=== PATIENT | male | born 1950 | race Caucasian/White ===

== ENCOUNTER 2016-12-30 09:52 | Observation (INO) | payer OTHER, BC ==
[~2016-12-30] VITALS: Ht 185.4 cm; Wt 88.6 kg
[~2016-12-30 09:52] MED LIST: ATOR-24 PO; BND25 PO; CLOP1TAB15 PO; CLX20 PO; EPP3/2 IM; FLR1 PO; HYD10 PO; METO25TA3 PO; MULTTAB58 PO
[2016-12-30] MEDS ORDERED: ASPIRIN 324 MG CHEW PO STA (10:20)
--- NOTE | 2016-12-30 10:31 | EMERGENCY ROOM VISIT NOTE ---
History Report prepared by Corin: Roz Sorto Under the Supervision of: Dr. Cj Swift M.D. First contact with patient: 10:13 Chief Complaint: CHEST PAIN Stated Complaint: CHEST PAIN History of Present Illness The patient is a 66 year old male who presents to the Emergency Room with complaints of intermittent dull chest pain beginning 2 hours ago. The patient states that he has had 4 episodes of chest pain this morning that started when he was sitting at his desk and radiate across his chest and into his back. He notes that he has a history of a heart stent and was concerned that he may be having issues with his heart. When he had the stent placed he notes that the chest pain was different and was more in the center of his chest and was exertional. He reports that he took TUMS today without relief of his symptoms. He notes that nothing worsens or relieves his symptoms today. The patient notes that he had some abdominal discomfort under the rib cage a few days ago that has resolved. He denies any arm pain, nausea, diaphoresis, shortness of breath, abdominal pain, leg pain, leg swelling, unusual belching, recent travel, and trauma. The patient reports that he has been under increased stress recently as his brother was diagnosed with pancreatic cancer, his sister in-law with brain cancer, and his niece with breast cancer. He notes a history of Mckean's disease and reports that he has not missed any of his medications. The patient states he is on Metoprolol and Plavix. Source of History: patient Onset: 2 hours ago Position: chest Symptom Intensity: 4 episodes Quality: dull, other (radiating) Timing: intermittent Modifying Factors (Worsening): other (none) Modifying Factors (Relieving): other (none) Associated Symptoms: + back pain, No diaphoresis, No SOB, No nausea, No abdominal pain Note: He denies any arm pain, leg pain, leg swelling, unusual belching, recent travel , and trauma. Review of Systems See HPI for pertinent positives & negatives. A total of 10 systems reviewed and were otherwise negative. Past Medical & Surgical Medical Problems: (1) Mckean disease (2) HTN (hypertension) Surgical Problems: (1) Hx of heart artery stent Old medical records were reviewed. Nurse's notes were reviewed and I agree with. Family History No pertinent family history stated. Social History Drug Use: none Marital Status: Housing Status: lives with family Occupation Status: employed Current/Historical Medications Scheduled Atorvastatin (Lipitor), 40 MG PO HS Citalopram Hydrobromide (Celexa), 20 MG PO DAILY Clopidogrel (Plavix), 75 MG PO DAILY Diphenhydramine Hcl (Benadryl), 1 TABLET PO PRN Epinephrine (Epipen), 0.3 MG IM UD Fludrocortisone Acetate (Florinef), 0.1 MG PO DAILY Hydrocortisone (Cortef), 20 MG PO QAM Hydrocortisone (Cortef), 10 MG PO QPM Metoprolol Succ (Toprol Xl) (Toprol-Xl), 25 MG PO DAILY Allergies Coded Allergies: Barley (Verified Allergy, Intermediate, celiac disease, 12/30/16) Animal Dander (Verified Allergy, Unknown, 02/02/13) BEE STING (Verified Allergy, Unknown, 02/02/13) Gluten (Verified Allergy, Unknown, POSSIBLY CELIAC DISEASE, 02/02/13) POLLEN (Verified Allergy, Unknown, 02/02/13) Sulfa Drugs (Verified Allergy, Unknown, 09/21/11) Wheat (Verified Adverse Reaction, Intermediate, celiac disease, 12/30/16) Uncoded Allergies: SULFA (Allergy, Mild, RASH, 02/02/13) Physical Exam Vital Signs Date Time Temp Pulse Resp B/P (MAP) Pulse Ox O2 Delivery O2 Flow Rate FiO2 12/30/16 12:47 63 18 12/30/16 12:42 55 23 12/30/16 12:37 54 20 12/30/16 12:32 55 14 12/30/16 12:27 56 14 12/30/16 12:22 54 15 12/30/16 12:17 56 17 12/30/16 12:12 55 15 96 12/30/16 12:07 55 12 97 12/30/16 12:02 57 18 12/30/16 12:01 139/110 12/30/16 11:57 54 19 12/30/16 11:52 53 15 12/30/16 11:47 59 17 96 12/30/16 11:42 52 14 97 12/30/16 11:37 52 14 96 12/30/16 11:32 50 13 96 12/30/16 11:31 158/80 12/30/16 11:27 54 14 96 12/30/16 11:22 53 15 96 12/30/16 11:17 53 14 96 12/30/16 11:12 51 17 98 12/30/16 11:07 55 15 95 12/30/16 11:02 53 11 95 12/30/16 11:01 137/85 12/30/16 10:57 52 15 96 12/30/16 10:52 54 18 96 12/30/16 10:47 56 13 97 12/30/16 10:42 53 15 97 12/30/16 10:37 55 22 96 12/30/16 10:35 147/77 12/30/16 10:35 52 16 147/77 Room Air 12/30/16 10:32 54 19 98 12/30/16 10:27 52 15 95 12/30/16 10:22 54 18 97 12/30/16 10:20 56 12/30/16 10:03 97 Room Air 12/30/16 10:03 116/78 12/30/16 10:03 36.7 54 15 116/78 97 Room Air 12/30/16 10:00 94 Room Air Physical Exam General: Well developed well nourished middle aged male in no acute distress, breathing comfortably on room air. Normal speech HEENT: Normal cephalic atraumatic. Pupils are equal round and reactive to light. Sclerae are anicteric. Extraocular movements are intact. Oropharynx is pink with moist mucous membranes. No swelling of the mouth lips or tongue. Neck: Supple with a midline trachea. No meningeal signs or stiffness, no JVD or bruits. No Stridor. Chest: Clear to auscultation bilaterally. No wheezes or rhonchi. No increased work of breathing. Heart: regular rate and rhythm. Abdomen: Soft nontender, nondistended without rebound guarding or rigidity. Extremities: No cyanosis clubbing or edema. No calf tenderness or assymetry Spine/Back. Non tender to palpation. No CVA tenderness Skin: Good turgor without rashes. Neurologic exam: Cranial nerves two through 12 are intact. Motor and sensation are intact and symmetrical throughout. Medical Decision & Procedures ER Provider Diagnostic Interpretation: X-ray results as stated below per interpretation by me and the radiologist: CHEST ONE VIEW PORTABLE FINDINGS: Cardiomediastinal and hilar silhouettes are within normal limits. There is no pneumothorax, pleural effusion or focal airspace consolidation. The bones appear to be grossly intact. IMPRESSION: No acute cardiopulmonary process. The above report was generated using voice recognition software. It may contain grammatical, syntax or spelling errors. Electronically signed by: Denzel Harper M.D. 12/30/2016 10:45 AM Dictated Date/Time: 12/30/2016 10:44 AM Laboratory Results 12/30/16 10:10 Red Blood Count 5.09, Mean Corpuscular Volume 85.5, Mean Corpuscular Hemoglobin 30.1, Mean Corpuscular Hemoglobin Concent 35.2, Mean Platelet Volume 8.7, Neutrophils (%) (Auto) 66.8, Lymphocytes (%) (Auto) 24.4, Monocytes (%) (Auto) 6.6, Eosinophils (%) (Auto) 1.6, Basophils (%) (Auto) 0.3, Neutrophils # (Auto) 4.57, Lymphocytes # (Auto) 1.67, Monocytes # (Auto) 0.45, Eosinophils # (Auto) 0.11, Basophils # (Auto) 0.02 12/30/16 10:10 Test 12/30/16 10:10 12/30/16 10:14 White Blood Count 6.84 K/uL (4.8-10.8) Red Blood Count 5.09 M/uL (4.7-6.1) Hemoglobin 15.3 g/dL (14.0-18.0) Hematocrit 43.5 % (42-52) Mean Corpuscular Volume 85.5 fL (80-100) Mean Corpuscular Hemoglobin 30.1 pg (25-34) Mean Corpuscular Hemoglobin Concent 35.2 g/dl (32-36) Platelet Count 209 K/uL (130-400) Mean Platelet Volume 8.7 fL (7.4-10.4) Neutrophils (%) (Auto) 66.8 % Lymphocytes (%) (Auto) 24.4 % Monocytes (%) (Auto) 6.6 % Eosinophils (%) (Auto) 1.6 % Basophils (%) (Auto) 0.3 % Neutrophils # (Auto) 4.57 K/uL (1.4-6.5) Lymphocytes # (Auto) 1.67 K/uL (1.2-3.4) Monocytes # (Auto) 0.45 K/uL (0.11-0.59) Eosinophils # (Auto) 0.11 K/uL (0-0.5) Basophils # (Auto) 0.02 K/uL (0-0.2) RDW Standard Deviation 42.1 fL (36.4-46.3) RDW Coefficient of Variation 13.5 % (11.5-14.5) Immature Granulocyte % (Auto) 0.3 % Immature Granulocyte # (Auto) 0.02 K/uL (0.00-0.02) Prothrombin Time 10.7 SECONDS (9.0-12.0) Prothromb Time International Ratio 1.0 (0.9-1.1) Activated Partial Thromboplast Time 29.5 SECONDS (21.0-31.0) Partial Thromboplastin Ratio 1.1 Anion Gap 6.0 mmol/L (3-11) Est Creatinine Clear Calc Drug Dose 73.6 ml/min Estimated GFR () 80.1 Estimated GFR (Non- 69.1 BUN/Creatinine Ratio 17.2 (10-20) Calcium Level 8.9 mg/dl (8.5-10.1) Total Bilirubin 0.5 mg/dl (0.2-1) Direct Bilirubin 0.1 mg/dl (0-0.2) Aspartate Amino Transf (AST/SGOT) 28 U/L (15-37) Alanine Aminotransferase (ALT/SGPT) 39 U/L (12-78) Alkaline Phosphatase 48 U/L (45-117) Total Creatine Kinase 105 U/L (39-308) Creatine Kinase MB 1.7 ng/ml (0.5-3.6) Creatine Kinase MB Ratio 1.6 (0-3.0) Total Protein 7.2 gm/dl (6.4-8.2) Albumin 3.7 gm/dl (3.4-5.0) Lipase 182 U/L (73-393) Bedside Troponin I < 0.030 ng/ml (0-0.045) Laboratory studies as stated above per my review. Medications Administered Medications (Trade) Dose Ordered Sig/Mackenzie Route Start Time Stop Time Status Last Admin Dose Admin Aspirin (Aspirin Chew) 324 mg NOW STAT PO 12/30/16 10:20 12/30/16 10:22 DC 12/30/16 10:34 324 MG ECG Indication: chest pain Rate (beats per minute): 53 Rhythm: sinus bradycardia Findings: no acute ischemic change, no ectopy Comparison ECG Date: 01/18/13 Change: no significant change Change: EKG #2: Sinus bradycardia, no ischemia, no change compared to EKG #1. ED Course 1013: Past medical records reviewed. The patient was evaluated in room A9, and a complete history and physical examination were performed. 1020: Aspirin Chew 324mg PO. 1110: I reevaluated the patient. He is resting comfortably. 1125: I reevaluated and updated the patient. 1146: Discussed the patient's case with Dr. [place]ales of [facility] The patient will be evaluated for further management. 1156: Upon reevaluation, the patient is doing well. I discussed the results and treatment plan with the patient. He verbalized agreement of the treatment plan. The patient will be evaluated for further management. Medical Decision Differential diagnosis includes acute coronary syndrome, arrhythmia, musculoskeletal pain, GERD, electrolyte or metabolic abnormality. This patient comes in as described above. He has a history cardiac disease. He had a stent in 2008 and also at that time and a 50% LAD lesion which was not stented. The patient's been having intermittent chest pain today that last briefly and has not associated with any other symptoms. He looks well upon my initial evaluation. His initial EKG shows no acute ischemic changes or ectopy. A second EKG shows no change compared to first and no evidence suggest acute coronary syndrome or arrhythmia. Cardiac biomarkers are negative. Chest x-ray was unremarkable and does not show congestive heart failure, pneumonia, or pneumothorax. He was given aspirin 324 mg chewable. I did a second EKG as he had a brief episode of pain but it was also unremarkable shows no change compared to EKG #1. I do think given the patient's significant cardiac history he should be admitted/observed in the hospital for further treatment and evaluation. I have consulted the [facility] hospitalist group to see the patient Medication Reconcilliation Current Medication List: was personally reviewed by me Blood Pressure Screening Patient's blood pressure: Elevated blood pressure Blood pressure disposition: Elevated BP felt to be situational Consults Time Called: 1140 Consulting Physician: Dr. Canales - [facility] Returned Call: 1146 Discussed the patient's case with Dr. Canales of [facility]. The patient will be evaluated for further management. Impression Primary Impression: Precordial chest pain Scribe Attestation The scribe's documentation has been prepared under my direction and personally reviewed by me in its entirety. I confirm that the note above accurately reflects all work, treatment, procedures, and medical decision making performed by me. Departure Information Dispostion Being Evaluated By Hospitalist Referrals David Julian M.D. (PCP) Patient Instructions [facility]
[2016-12-30 10:33] LABS: BASO % 0.3 %; BASO ABS # 0.02 K/uL (0-0.2); COMPLETE YES; EOS % 1.6 %; HEMATOCRIT 43.5 % (42-52); IG% 0.3 %; LYMPH % 24.4 %; LYMPH ABS # 1.67 K/uL (1.2-3.4); MEAN CELL VOLUME 85.5 fL (80-100); MEAN CORPUSCULAR HEMOGLOBIN 30.1 pg (25-34); MEAN CORPUSCULAR HGB CONC 35.2 g/dl (32-36); MEAN PLATELET VOLUME 8.7 fL (7.4-10.4); MONO % 6.6 %; NEUT % 66.8 %; PLATELET COUNT 209 K/uL (130-400); RED BLOOD COUNT 5.09 M/uL (4.7-6.1); WHITE BLOOD COUNT 6.84 K/uL (4.8-10.8)
[2016-12-30] MEDS ORDERED: FLUD0.1T10 PO (10:37)
[2016-12-30] MEDS ORDERED: CITA20TA9 PO (10:37)
[2016-12-30] MEDS ORDERED: HYDR20TA PO (10:37)
[2016-12-30] MEDS ORDERED: HYD10 PO (10:37)
[2016-12-30 10:44] LABS: PARTIAL THROMBOPLASTIN RATIO 1.1; PROTHROMBIN TIME (PATIENT) 10.7 SECONDS (9.0-12.0)
--- NOTE | 2016-12-30 10:47 | DIAGNOSTIC IMAGING REPORT ---
CHEST ONE VIEW PORTABLE HISTORY: 66 years-old Male CHEST PAIN . History of melanoma. COMPARISON: PET CT 03/09/2014, chest radiograph 09/21/2011 TECHNIQUE: Portable upright AP view of the chest FINDINGS: Cardiomediastinal and hilar silhouettes are within normal limits. There is no pneumothorax, pleural effusion or focal airspace consolidation. The bones appear to be grossly intact. IMPRESSION: No acute cardiopulmonary process. The above report was generated using voice recognition software. It may contain grammatical, syntax or spelling errors. Electronically signed by: Denzel Harper M.D. 12/30/2016 10:45 AM Dictated Date/Time: 12/30/2016 10:44 AM
[2016-12-30 10:56] LABS: BUN/CREATININE RATIO 17.2 (10-20); CALCIUM 8.9 mg/dl (8.5-10.1); CREATININE 1.1 mg/dl (0.60-1.40); POTASSIUM 4.5 mmol/L (3.5-5.1)
[2016-12-30 11:01] LABS: CKMB/CK RATIO 1.6 (0-3.0)
[2016-12-30] MEDS ORDERED: PANTOprazole SOD 40 MG TAB PO STA (12:44)
[2016-12-30] MEDS ORDERED: ONDANSETRON INJ 2 MG/ML 2 ML VIAL IV PRN (12:45)
[2016-12-30] MEDS ORDERED: ALUMINUM/MAGNESIUM/SIMETH (MAALOX MAX) 30 ML UDC PO PRN (12:45)
[2016-12-30] MEDS ORDERED: POLYETHYLENE (MIRALAX) 17 GM PACK PO PRN (12:45)
[2016-12-30] MEDS ORDERED: NITROGLYCERIN 0.4 MG SL PER TAB CHARGE SL PRN (12:45)
[2016-12-30] MEDS ORDERED: MAGNESIUM HYDROXIDE SUSP 30 ML UDC PO PRN (12:45)
[2016-12-30] MEDS ORDERED: ACETAMINOPHEN 325 MG TAB PO PRN (12:45)
[2016-12-30] MEDS ORDERED: HydrALAZINE HCL 20 MG/ML VIAL IV. PRN (12:45)
[2016-12-30 12:50] VITALS: O2SAT 96; Ht 185.4 cm; Wt 88.6 kg
--- NOTE | 2016-12-30 13:08 | History and Physical ---
History & Physical Date & Time of Service: Dec 30, 2016 at 12:50 Chief Complaint: Chest Pain Primary Care Physician: David Julian M.D. History of Present Illness Source: patient, family (), clinic records, hospital records Patient is a pleasant 66 y/o male, with PMHx of CAD s/p stent placement, hyperlipidemia, Lola disease, celiac disease, HTN, anxiety, MARIUM, and GERD, who presented to the ED because of anterior chest pain that started this AM. Pain occurred while sitting at desk at work. Chest pain spanned across anterior chest pain from left to right. Discomofort came and went 4-5 times over the course of the morning. Denies any radiation. Denies any associated diaphoresis, SOB, N/V. Patient has a history of CAD s/p stent placement. He follows with Dr. Hauser. Current symptoms do not seem similar to past experience. HR usually runs in mid 60s. Has a h/o GERD- currently does not take Prilosec. Symptoms do not seem similar. Took Tums this AM without relief in symptoms. He also admits to LUQ abdominal discomfort x a few days, but seems to be resolving. He admits to increased stress lately due to multiple family members battling cancer. His brother was recently diagnosed with pancreatic cancer and he is concerned his LUQ pain is a result of his pancreas. Admits he mostly thinks his pain is due to his brother's diagnosis. Patient has otherwise been feeling well. Patient denies any fever, chills, sweats, lightheadedness, dizziness, vision changes, palpitations, edema, SOB, wheezing, cough, nausea, vomiting, diarrhea, urinary symptoms, melena, numbness/tingling, weakness, muscle/joint pain, depression, active bleeding, or new skin discoloration/changes. Past Medical/Surgical History Medical Problems: CAD s/p stent placement hyperlipidemia [place] disease celiac disease HTN anxiety MARIUM GERD Surgical Problems: s/p heart stent Family History Pancreatic cancer Brain cancer Breast cancer CAD CHF Social History Smoking Status: Former Smoker Marital Status: Housing status: lives with family Occupational Status: employed Immunizations History of Influenza Vaccine: N/A History of Tetanus Vaccine?: Yes Tetanus Immunization Date: Dec 04, 2006 History of Pneumococcal: Yes Pneumococcal Date: Dec 04, 2006 History of Hepatitis B Vaccine: Unknown Multi-Drug Resistant Organisms History of MDRO: No Allergies Coded Allergies: Barley (Verified Allergy, Intermediate, celiac disease, 12/30/16) Animal Dander (Verified Allergy, Unknown, 02/02/13) BEE STING (Verified Allergy, Unknown, 02/02/13) Gluten (Verified Allergy, Unknown, POSSIBLY CELIAC DISEASE, 02/02/13) POLLEN (Verified Allergy, Unknown, 02/02/13) Sulfa Drugs (Verified Allergy, Unknown, 09/21/11) Wheat (Verified Adverse Reaction, Intermediate, celiac disease, 12/30/16) Uncoded Allergies: SULFA (Allergy, Mild, RASH, 02/02/13) Home Medications Scheduled Atorvastatin (Lipitor), 40 MG PO HS Citalopram Hydrobromide (Celexa), 20 MG PO DAILY Clopidogrel (Plavix), 75 MG PO DAILY Diphenhydramine Hcl (Benadryl), 1 TABLET PO PRN Epinephrine (Epipen), 0.3 MG IM UD Fludrocortisone Acetate (Florinef), 0.1 MG PO DAILY Hydrocortisone (Cortef), 20 MG PO QAM Hydrocortisone (Cortef), 10 MG PO QPM Metoprolol Succ (Toprol Xl) (Toprol-Xl), 25 MG PO DAILY Physical Exam Vital Signs Date Time Temp Pulse Resp B/P (MAP) Pulse Ox O2 Delivery O2 Flow Rate FiO2 12/30/16 12:32 55 14 12/30/16 12:27 56 14 12/30/16 12:22 54 15 12/30/16 12:17 56 17 12/30/16 12:12 55 15 96 12/30/16 12:07 55 12 97 12/30/16 12:02 57 18 12/30/16 12:01 139/110 12/30/16 11:57 54 19 12/30/16 11:52 53 15 12/30/16 11:47 59 17 96 12/30/16 11:42 52 14 97 12/30/16 11:37 52 14 96 12/30/16 11:32 50 13 96 12/30/16 11:31 158/80 12/30/16 11:27 54 14 96 12/30/16 11:22 53 15 96 12/30/16 11:17 53 14 96 12/30/16 11:12 51 17 98 12/30/16 11:07 55 15 95 12/30/16 11:02 53 11 95 12/30/16 11:01 137/85 12/30/16 10:57 52 15 96 12/30/16 10:52 54 18 96 12/30/16 10:47 56 13 97 12/30/16 10:42 53 15 97 12/30/16 10:37 55 22 96 12/30/16 10:35 147/77 12/30/16 10:35 52 16 147/77 Room Air 12/30/16 10:32 54 19 98 12/30/16 10:27 52 15 95 12/30/16 10:22 54 18 97 12/30/16 10:20 56 12/30/16 10:03 97 Room Air 12/30/16 10:03 116/78 12/30/16 10:03 36.7 54 15 116/78 97 Room Air 12/30/16 10:00 94 Room Air General Appearance: WD/WN, no apparent distress Head: normocephalic, atraumatic Eyes: normal inspection, PERRL ENT: hearing grossly normal Neck: supple Respiratory/Chest: lungs clear, normal breath sounds, no respiratory distress, no accessory muscle use Cardiovascular: + bradycardia (rhythm regular ) Abdomen/GI: normal bowel sounds, non tender, soft, no organomegaly Back: normal inspection, no CVA tenderness Extremities/Musculoskelatal: normal inspection, no calf tenderness, no pedal edema Neurologic/Psych: alert, normal mood/affect, oriented x 3 Skin: normal color, warm/dry, no rash Diagnostics Laboratory Results Results Past 24 Hours Test 12/30/16 10:10 12/30/16 10:14 Range/Units White Blood Count 6.84 4.8-10.8 K/uL Red Blood Count 5.09 4.7-6.1 M/uL Hemoglobin 15.3 14.0-18.0 g/dL Hematocrit 43.5 42-52 % Mean Corpuscular Volume 85.5 80-100 fL Mean Corpuscular Hemoglobin 30.1 25-34 pg Mean Corpuscular Hemoglobin Concent 35.2 32-36 g/dl Platelet Count 209 130-400 K/uL Mean Platelet Volume 8.7 7.4-10.4 fL Neutrophils (%) (Auto) 66.8 % Lymphocytes (%) (Auto) 24.4 % Monocytes (%) (Auto) 6.6 % Eosinophils (%) (Auto) 1.6 % Basophils (%) (Auto) 0.3 % Neutrophils # (Auto) 4.57 1.4-6.5 K/uL Lymphocytes # (Auto) 1.67 1.2-3.4 K/uL Monocytes # (Auto) 0.45 0.11-0.59 K/uL Eosinophils # (Auto) 0.11 0-0.5 K/uL Basophils # (Auto) 0.02 0-0.2 K/uL RDW Standard Deviation 42.1 36.4-46.3 fL RDW Coefficient of Variation 13.5 11.5-14.5 % Immature Granulocyte % (Auto) 0.3 % Immature Granulocyte # (Auto) 0.02 0.00-0.02 K/uL Prothrombin Time 10.7 9.0-12.0 SECONDS Prothromb Time International Ratio 1.0 0.9-1.1 Activated Partial Thromboplast Time 29.5 21.0-31.0 SECONDS Partial Thromboplastin Ratio 1.1 Sodium Level 137 136-145 mmol/L Potassium Level 4.5 3.5-5.1 mmol/L Chloride Level 102 98-107 mmol/L Carbon Dioxide Level 29 21-32 mmol/L Anion Gap 6.0 3-11 mmol/L Blood Urea Nitrogen 19 7-18 mg/dl Creatinine 1.10 0.60-1.40 mg/dl Est Creatinine Clear Calc Drug Dose 73.6 ml/min Estimated GFR () 80.1 Estimated GFR (Non- 69.1 BUN/Creatinine Ratio 17.2 10-20 Random Glucose 109 70-99 mg/dl Calcium Level 8.9 8.5-10.1 mg/dl Total Bilirubin 0.5 0.2-1 mg/dl Direct Bilirubin 0.1 0-0.2 mg/dl Aspartate Amino Transf (AST/SGOT) 28 15-37 U/L Alanine Aminotransferase (ALT/SGPT) 39 12-78 U/L Alkaline Phosphatase 48 45-117 U/L Total Creatine Kinase 105 39-308 U/L Creatine Kinase MB 1.7 0.5-3.6 ng/ml Creatine Kinase MB Ratio 1.6 0-3.0 Total Protein 7.2 6.4-8.2 gm/dl Albumin 3.7 3.4-5.0 gm/dl Lipase 182 73-393 U/L Bedside Troponin I < 0.030 0-0.045 ng/ml Diagnostic Radiology CHEST ONE VIEW PORTABLE HISTORY: 66 years-old Male CHEST PAIN . History of melanoma. COMPARISON: PET CT 03/09/2014, chest radiograph 09/21/2011 TECHNIQUE: Portable upright AP view of the chest FINDINGS: Cardiomediastinal and hilar silhouettes are within normal limits. There is no pneumothorax, pleural effusion or focal airspace consolidation. The bones appear to be grossly intact. IMPRESSION: No acute cardiopulmonary process. The above report was generated using voice recognition software. It may contain grammatical, syntax or spelling errors. Electronically signed by: Denzel Harper M.D. 12/30/2016 10:45 AM Dictated Date/Time: 12/30/2016 10:44 AM The status of this report is Signed. Draft = Not yet reviewed or approved by Radiologist. Signed = Reviewed and approved by Radiologist. EKG JEREMY GODDARD ID:[id number] 30-DEC-2016 10:03:12 [facility] Sinus bradycardia Otherwise normal ECG When compared with ECG of 18-JAN-2013 09:34, No significant change was found 25mm/s 10mm/mV 150Hz 8.0 SP2 12SL 241 LA: 0 Referred by: ED Unconfirmed Vent. rate 53 BPM MT interval 146 ms QRS duration 100 ms QT/QTc 446/418 ms P-R-T axes 52 74 57 1950 (66 yr) Male Room: Loc:15 Institutional Research Director:PAULA Farley ind: Impression Assessment and Plan Patient is a pleasant 66 y/o male, with PMHx of CAD s/p stent placement, hyperlipidemia, Lola disease, celiac disease, HTN, anxiety, MARIUM, and GERD, who presented to the ED because of anterior chest pain that started this AM. Chest pain, ?secondary to ACS vs GERD vs anxiety: - Admit to tele for cardiac monitoring - Trend cardiac enzymes- initial trop negative - No acute EKG changes- follow QAM and PRN CP - Hold Metoprolol 25 mg daily due to bradycardia pending cardiology consultation - Start Protonix - ASA 81 mg daily - Check ha1c and lipid panel - Consult cardiology, appreciate recommendations LUQ pain: - CBC and CMP unremarkable - Lipase WNL - Unremarkable physical exam - Continue to monitor CAD s/p stent placement- follows w/ Dr. Hauser, hyperlipidemia: - Hold Metoprolol as above - Continue Plavix 75 mg daily, Lipitor 40 mg HS HTN: - Metoprolol held - IV hydralazine 10 mg q6 hrs PRN for sbp >180 or dbp >100 Anxiety: Continue Celexa 20 mg daily [place] Disease: Continue Cortef 20 mg QAM and 10 mg QPM, Florinef 0.1 mg daily MARIUM: CPAP- is bringing home machine Celiac disease: Gluten free diet GI Prophylaxis: Protonix 40 mg daily DVT Prophylaxis: Heparin SQ BID Code Status: LEVEL I, FULL Dispo: From home, lives w/ - social worker school consulted Level of Care Telemetry Resuscitation Status FULL RESUSCITATION VTE Prophylaxis VTE Risk Assessment Done? Y/N: Yes Risk Level: Moderate Given or contraindicated: Unfractionated heparin SQ, T.E.D. Stockings, SCD's Note Attending Admission Note & Attestation: Pt seen/examined, chart reviewed, care plan d/w TRINI Elizabeth. I agree w/ the williamson components of her admission documentation. 66yo male with known CAD s/p stent placement in 2008, celiac disease, lola's disease, and HTN presenting with several episodes of chest discomfort this am while working at his desk at work. Symptoms were not similar to his chest pain when he had a stent placed in 2008. Just before my arrival he had an episode that lasted about 5 minutes then self-resolved. He reports a significant amount of stress due to multiple family members having been diagnosed with cancer recently including his brother. PMH, PSH, allergies, meds, sochx, famhx, ros - reviewed VSS gen - nad, pleasant neck - no JVD heart - RRR, s1, s2, no murmur lungs - CTA b/l chest - no reproducible chest wall pain abd - soft, NT, ND, BS+, no HSM ext - no edema EKG - NSR, no ST changes troponin negative cxr - normal other labs unremarkable A/P: Chest pain in the setting of known CAD -- although his symptoms are atypical, plan for serial cardiac enzymes, telemetry, and possible stress test in am. continue all prior cardiac meds along with his daily regimen of cortef & florinef. David Moraes MD
[2016-12-30] MEDS ORDERED: IV FLUIDS COMPLETED PRN (13:15)
[2016-12-30 14:32] VITALS: O2SAT 96
[2016-12-30 15:00] VITALS: BP 127/61; PULSE 60; TEMP 36.8; O2SAT 97
[2016-12-30] MEDS ORDERED: NITROGLYCERIN OINT 2% 1GM PACKET EXT SCH (16:00)
--- NOTE | 2016-12-30 17:35 | Cardiology Consultation ---
Cardiology Consultation Date of Consultation: Dec 30, 2016. Requesting Physician: Aleisha Reason for Consultation: Chest pain Pt evaluation today including: conversation w/ patient, physical exam, chart review, lab review, conversation w/ attending History of Present Illness The patient is a 66-year-old gentleman with a history of coronary artery disease having previously undergone stenting to the right coronary artery in 2008. Earlier today the patient was experiencing episodes of chest discomfort. These are described as precordial in nature and generally involving the entire upper chest. There are fairly fleeting lasting only a few minutes before resolving. The did not appear to be precipitated by any particular movement or activity. They were not relieved by any particular intervention. They were associated with very mild sense of shortness of breath. There was no other associated symptoms. He did not have any arm discomfort. There was no significant dizziness or lightheadedness. He did not report any radiation to the back. Did not have any diaphoresis or nausea. Based on the recurrent nature of the symptoms and his history of coronary disease the patient felt that an evaluation was warranted any presented to [facility] Emergency Room. Since his admission to the emergency room the patient's symptoms appear to have resolved. He does have some left lower quadrant discomfort as well that appears to be positional in nature. He is not overtly tender in that area but when he turns to his right side he can feel discomfort at that site. He has not had pleuritic chest pain. The symptoms he experienced today appear to be distinct from those experienced prior to his stent. At that time the patient was having exertional chest pressure. In general he is an active individual who was able to participate in strenuous activity without significant limitation or symptoms. He states several days ago he was mowing his lawn and pulling and pushing a standard stave jointer up down hill without symptoms of chest discomfort or dyspnea. He denies any orthopnea or paroxysmal nocturnal dyspnea but does use CPAP at night. He denies any swelling in his lower extremities. Does have occasional palpitations that are fleeting in nature and longstanding. Past Medical/Surgical History Coronary artery disease status post drug-eluting stent to the right coronary artery in 2008 Hyperlipidemia Hypertension Melanoma Prostate cancer Past surgical history Inguinal hernia repair Prostatectomy Family History Brother recently diagnosed with pancreatic cancer. Older brother with coronary artery disease Social History Smoking Status: Former Smoker History of Alcohol Use: Yes (beer, 1 or 2 daily in evening) Review of Systems Constitutional: + see HPI Respiratory: + see HPI Cardiac: + see HPI Abdomen: + see HPI Male : + see HPI Neurologic: + see HPI Heme: + see HPI Endo: + see HPI Skin: + see HPI Patient has been under more stress recently as his brother, his brother's and his brother's child have all been diagnosed with malignancies recently. All Other Systems: Reviewed and Negative Allergies Coded Allergies: Barley (Verified Allergy, Intermediate, celiac disease, 12/30/16) Animal Dander (Verified Allergy, Unknown, 02/02/13) BEE STING (Verified Allergy, Unknown, 02/02/13) Gluten (Verified Allergy, Unknown, POSSIBLY CELIAC DISEASE, 02/02/13) POLLEN (Verified Allergy, Unknown, 02/02/13) Sulfa Drugs (Verified Allergy, Unknown, 09/21/11) Wheat (Verified Adverse Reaction, Intermediate, celiac disease, 12/30/16) Uncoded Allergies: SULFA (Allergy, Mild, RASH, 02/02/13) Medications Current Inpatient Medications Medications (Trade) Dose Ordered Sig/Mackenzie Route Start Time Stop Time Status Last Admin Dose Admin Heparin Sodium (Porcine) (Heparin Sq 5000 Unit/0.5ml) 5,000 unit Q12 SQ 12/30/16 21:00 01/29/17 20:59 Acetaminophen (Tylenol Tab) 650 mg Q4H PRN PO 12/30/16 12:45 01/29/17 12:44 Al Hydrox/Mg Hydrox/Simethicone (Maalox Max Susp) 15 ml Q4H PRN PO 12/30/16 12:45 01/29/17 12:44 Magnesium Hydroxide (Milk Of Magnesia Susp) 30 ml Q12H PRN PO 12/30/16 12:45 01/29/17 12:44 Ondansetron HCl (Zofran Inj) 4 mg Q6H PRN IV 12/30/16 12:45 01/29/17 12:44 Nitroglycerin (Nitrostat Tab) 0.4 mg UD PRN SL 12/30/16 12:45 01/29/17 12:44 Aspirin (Ecotrin Tab) 81 mg QAM PO 12/31/16 09:00 01/30/17 08:59 Polyethylene (Miralax Powder Packet) 17 gm DAILY PRN PO 12/30/16 12:45 01/29/17 12:44 Pantoprazole Sodium (Protonix Tab) 40 mg QAM PO 12/31/16 09:00 01/30/17 08:59 Atorvastatin Calcium (Lipitor Tab) 40 mg HS PO 12/30/16 21:00 01/29/17 20:59 Citalopram Hydrobromide (celeXA TAB) 20 mg DAILY PO 12/31/16 09:00 01/30/17 08:59 Clopidogrel Bisulfate (plAVix TAB) 75 mg DAILY PO 12/31/16 09:00 01/30/17 08:59 Fludrocortisone Acetate (Florinef Tab) 0.1 mg DAILY PO 12/31/16 09:00 01/30/17 08:59 Hydrocortisone (Cortef Tab) 10 mg QPM PO 12/30/16 21:00 01/29/17 20:59 Hydrocortisone (Cortef Tab) 20 mg QAM PO 12/31/16 09:00 01/30/17 08:59 Hydralazine HCl (HydrALAZINE INJ) 10 mg Q6H PRN IV. 12/30/16 12:45 01/29/17 12:44 Miscellaneous (Iv Fluids Completed) 1 ea PRN PRN N/A 12/30/16 13:15 12/30/17 13:14 Nitroglycerin (Nitroglycerin 2% Oint) 0.5 inch Q6H EXT 12/30/16 16:00 01/29/17 13:59 Physical Exam Vital Signs Past 12 Hours Date Time Temp Pulse Resp B/P (MAP) Pulse Ox O2 Delivery O2 Flow Rate FiO2 12/30/16 16:00 Room Air 12/30/16 15:00 36.8 60 18 127/61 (83) 97 Room Air 12/30/16 14:32 55 15 96 12/30/16 14:31 129/79 12/30/16 14:27 63 17 96 12/30/16 14:22 58 16 96 12/30/16 14:17 59 15 95 12/30/16 14:12 58 24 95 12/30/16 14:07 57 17 96 12/30/16 14:02 57 15 97 12/30/16 14:01 138/76 12/30/16 13:57 60 14 97 12/30/16 13:52 56 20 98 12/30/16 13:47 62 14 12/30/16 13:42 60 16 12/30/16 13:37 58 14 12/30/16 13:32 58 15 97 12/30/16 13:30 141/76 12/30/16 13:27 58 16 96 12/30/16 13:22 57 17 96 12/30/16 13:17 57 17 97 12/30/16 13:12 59 17 93 12/30/16 13:07 56 22 97 12/30/16 13:02 55 14 96 12/30/16 13:01 116/79 12/30/16 13:01 57 16 116/79 98 Room Air 12/30/16 12:57 56 15 97 12/30/16 12:52 61 14 12/30/16 12:50 96 Room Air 12/30/16 12:47 63 18 12/30/16 12:42 55 23 12/30/16 12:37 54 20 12/30/16 12:32 55 14 12/30/16 12:27 56 14 12/30/16 12:22 54 15 12/30/16 12:17 56 17 12/30/16 12:12 55 15 96 12/30/16 12:07 55 12 97 12/30/16 12:02 57 18 12/30/16 12:01 139/110 12/30/16 11:57 54 19 12/30/16 11:52 53 15 12/30/16 11:47 59 17 96 12/30/16 11:42 52 14 97 12/30/16 11:37 52 14 96 12/30/16 11:32 50 13 96 12/30/16 11:31 158/80 12/30/16 11:27 54 14 96 12/30/16 11:22 53 15 96 12/30/16 11:17 53 14 96 12/30/16 11:12 51 17 98 12/30/16 11:07 55 15 95 12/30/16 11:02 53 11 95 12/30/16 11:01 137/85 12/30/16 10:57 52 15 96 12/30/16 10:52 54 18 96 12/30/16 10:47 56 13 97 12/30/16 10:42 53 15 97 12/30/16 10:37 55 22 96 12/30/16 10:35 147/77 12/30/16 10:35 52 16 147/77 Room Air 12/30/16 10:32 54 19 98 12/30/16 10:27 52 15 95 12/30/16 10:22 54 18 97 12/30/16 10:20 56 12/30/16 10:03 97 Room Air 12/30/16 10:03 116/78 12/30/16 10:03 36.7 54 15 116/78 97 Room Air 12/30/16 10:00 94 Room Air The patient is alert and oriented. Mood and affect appeared normal. He answered all questions appropriately. HEENT: Pupils are equal and reactive to light and accommodation. Extraocular movements are intact. The sclerae are anicteric. Neuro: Cranial nerves intact Neck: Patient's neck is supple. He has palpable carotid pulses bilaterally without bruits on auscultation. There is no evidence of jugular venous distention. The thyroid is not enlarged. Lungs: Clear to auscultation bilaterally. He has good air movement without use of accessory muscles. No rales wheezes or rhonchi. Cardiac: Heart demonstrates a regular rate and rhythm. Normal S1 and S2. No murmurs on examination. Pulses: The patient has palpable radial pulses bilaterally that are equal in intensity Extremities: There was no evidence of hypoperfusion. There is no cyanosis or clubbing. There is no edema. Skin: I did not appreciate any rashes on examination today. Data Laboratory Results: Last 24 Hours Test 12/30/16 10:10 12/30/16 10:14 White Blood Count 6.84 K/uL Red Blood Count 5.09 M/uL Hemoglobin 15.3 g/dL Hematocrit 43.5 % Mean Corpuscular Volume 85.5 fL Mean Corpuscular Hemoglobin 30.1 pg Mean Corpuscular Hemoglobin Concent 35.2 g/dl Platelet Count 209 K/uL Mean Platelet Volume 8.7 fL Neutrophils (%) (Auto) 66.8 % Lymphocytes (%) (Auto) 24.4 % Monocytes (%) (Auto) 6.6 % Eosinophils (%) (Auto) 1.6 % Basophils (%) (Auto) 0.3 % Neutrophils # (Auto) 4.57 K/uL Lymphocytes # (Auto) 1.67 K/uL Monocytes # (Auto) 0.45 K/uL Eosinophils # (Auto) 0.11 K/uL Basophils # (Auto) 0.02 K/uL RDW Standard Deviation 42.1 fL RDW Coefficient of Variation 13.5 % Immature Granulocyte % (Auto) 0.3 % Immature Granulocyte # (Auto) 0.02 K/uL Prothrombin Time 10.7 SECONDS Prothromb Time International Ratio 1.0 Activated Partial Thromboplast Time 29.5 SECONDS Partial Thromboplastin Ratio 1.1 Sodium Level 137 mmol/L Potassium Level 4.5 mmol/L Chloride Level 102 mmol/L Carbon Dioxide Level 29 mmol/L Anion Gap 6.0 mmol/L Blood Urea Nitrogen 19 mg/dl Creatinine 1.10 mg/dl Est Creatinine Clear Calc Drug Dose 73.6 ml/min Estimated GFR () 80.1 Estimated GFR (Non- 69.1 BUN/Creatinine Ratio 17.2 Random Glucose 109 mg/dl Calcium Level 8.9 mg/dl Total Bilirubin 0.5 mg/dl Direct Bilirubin 0.1 mg/dl Aspartate Amino Transf (AST/SGOT) 28 U/L Alanine Aminotransferase (ALT/SGPT) 39 U/L Alkaline Phosphatase 48 U/L Total Creatine Kinase 105 U/L Creatine Kinase MB 1.7 ng/ml Creatine Kinase MB Ratio 1.6 Total Protein 7.2 gm/dl Albumin 3.7 gm/dl Lipase 182 U/L Bedside Troponin I < 0.030 ng/ml Imaging: Chest x-ray did not reveal any acute cardiopulmonary process EKG: Normal sinus rhythm. Normal EKG. I reviewed the source images and compared to the old EKGs. Unchanged. Telemetry reviewed: No arrhythmia Assessment & Plan 1. Chest pain: Patient's chest pain symptoms are somewhat atypical in that they are not associated with exertion and are fairly short in duration. He has not had any elevation in his cardiac biomarkers so far, but with the brief duration of the episodes I would not expect to see any evidence of ischemia. He was able perform significant amount of exertion recently without symptoms of chest pain or coronary insufficiency. He has no objective findings of ischemia. EKG is normal. He is currently pain free with the exception of the left lower quadrant discomfort. The pain appears decidedly noncardiac. Given his history would seem reasonable to trend his biomarkers over the course of the evening and monitor his symptoms. In the absence of recurrent symptoms or objective evidence of ischemia standard exercise treadmill testing would seem reasonable in the morning. Continuation of his current medical regimen to include atorvastatin, clopidogrel and metoprolol seems reasonable.
[2016-12-30] MEDS ORDERED: NURSING VERBAL MED ORDER ONE (17:45)
[2016-12-30 19:20] VITALS: BP 120/66; PULSE 56; TEMP 36.9; O2SAT 96
[2016-12-30] MEDS ORDERED: HYDROCORTISONE 10 MG TAB PO SCH (21:00)
[2016-12-30] MEDS ORDERED: ATORVASTATIN 40 MG TAB PO SCH (21:00)
[2016-12-30] MEDS: HEPARIN SOD 5000 UNIT/0.5 ML CARP SQ SCH (21:05)
[2016-12-30 23:14] VITALS: BP 125/68; PULSE 61; TEMP 36.4; O2SAT 94
[2016-12-31 03:14] VITALS: BP 120/70; PULSE 54; TEMP 36.2; O2SAT 97
[2016-12-31 06:22] LABS: CHOLESTEROL/HDL RATIO 4.2
[2016-12-31 07:03] LABS: ESTIMATED AVERAGE GLUCOSE 120 mg/dl; HA1C FLAG Normal (Normal)
[2016-12-31 07:44] VITALS: BP 112/73; PULSE 60; TEMP 36.5; O2SAT 94
[2016-12-31] MEDS: ASPIRIN 81 MG ECTAB PO SCH ×2 (08:42→09:00)
[2016-12-31] MEDS: HEPARIN SOD 5000 UNIT/0.5 ML CARP SQ SCH (09:00)
[2016-12-31] MEDS ORDERED: CLOPIDOGREL BISULFATE 75 MG TAB PO SCH (09:00)
[2016-12-31] MEDS ORDERED: HYDROCORTISONE 10 MG TAB PO SCH (09:00)
[2016-12-31] MEDS ORDERED: FLUDROCORTISONE ACETATE 0.1 MG TAB PO SCH (09:00)
[2016-12-31] MEDS ORDERED: CITALOPRAM 20 MG TAB PO SCH (09:00)
[2016-12-31] MEDS ORDERED: PANTOprazole SOD 40 MG TAB PO SCH (09:00)
--- NOTE | 2016-12-31 10:10 | Discharge Instructions ---
Discharge Instructions Date of Service Dec 31, 2016. Admission Reason for Admission: Chest Pain Discharge Discharge Diagnosis / Problem: non cardiac chest/ Rib pain Discharge Goals Goal(s): Diagnostic testing, Therapeutic intervention Activity Recommendations Activity Limitations: resume your previous activity . Current Hospital Diet Patient's current hospital diet: AHA Diet (Heart Healthy), Gluten Free Diet Discharge Diet Recommended Diet: AHA Diet (Heart Healthy) Procedures Procedures Performed: Stress Echo negative for cardiac ischemia to explain pain Pending Studies Studies pending at discharge: no Laboratory Results Hemoglobin A1c Test 12/31/16 05:35 Range/Units Estimated Average Glucose 120 mg/dl Hemoglobin A1c 5.8 H 4.5-5.6 % Lipid Panel Test 12/31/16 05:35 Range/Units Triglycerides Level 126 0-150 mg/dl Cholesterol Level 139 0-200 mg/dl HDL Cholesterol 33 mg/dl Cholesterol/HDL Ratio 4.2 LDL Cholesterol, Calculated 81 mg/dl Medical Emergencies . Who to Call and When: Medical Emergencies: If at any time you feel your situation is an emergency, please call 911 immediately. . Non-Emergent Contact Non-Emergency issues call your: Primary Care Provider, Ground [place] Call Non-Emergent contact if: temperature is above 101, your pain is unusual for you . . "Provider Documentation" section prepared by Vitor Eden. . VTE Core Measure Inpt VTE Proph given/why not?: Unfractionated heparin TISH, THansEBrien Stockings, SCD 's
--- NOTE | 2016-12-31 10:18 | Discharge Summary ---
Discharge Summary Date of Service Dec 31, 2016. Discharge Summary Admission Date: Dec 30, 2016 at 12:49 Discharge Date: Dec 31, 2016 Discharge Disposition: Home Principal Diagnosis: non cardiac chest pain Immunizations: Have You Had Influenza Vaccine: N/A History of Tetanus Vaccine?: Yes Tetanus Immunization Date: Dec 04, 2006 History of Pneumococcal: Yes Pneumococcal Date: Dec 04, 2006 History of Hepatitis B Vaccine: Unknown Procedures: Stress Echo negative per Dr Hauser Medication Reconciliation Continued Medications: Atorvastatin (Lipitor) 40 Mg Tab 40 MG PO HS Citalopram Hydrobromide (Celexa) 20 Mg Tab 20 MG PO DAILY Clopidogrel (Plavix) 75 Mg Tab 75 MG PO DAILY Diphenhydramine Hcl (Benadryl) 25 Mg Cap 1 TABLET PO PRN, 0 Refills Epinephrine (Epipen) 0.3 Mg/0.3 Ml Inj 0.3 MG IM UD Fludrocortisone Acetate (Florinef) 0.1 Mg Tab 0.1 MG PO DAILY Hydrocortisone (Cortef) 20 Mg Tab 20 MG PO QAM Hydrocortisone (Cortef) 10 Mg Tab 10 MG PO QPM Metoprolol Succ (Toprol Xl) (Toprol-Xl) 25 Mg Tabcr 25 MG PO DAILY Discharge Exam Review of Systems: Constitutional: No fever, No chills Respiratory: No cough, No sputum Cardiovascular: No chest pain, No orthopnea Abdomen: + pain, No nausea Physical Exam: General Appearance: WD/WN, no apparent distress Neck: supple, no JVD Respiratory/Chest: chest non-tender, lungs clear, normal breath sounds Cardiovascular: regular rate, rhythm, no murmur Abdomen / GI: normal bowel sounds, non tender, soft Hospital Course Patient is a pleasant 66 y/o male, with PMHx of CAD s/p stent placement, hyperlipidemia, Gentry disease, celiac disease, HTN, anxiety, MARIUM, and GERD, who presented to the ED because of anterior chest pain that started this AM. Chest pain, pt with stent, but did have negative biomarkers, negative stress echo, will continue meds for secondary prevention of cardiac disease Plavix, metoprolol LUQ pain: continues with normal exam, pain resolved warned about signs of shingles, he did have shingles vaccination Anxiety: Continue Celexa 20 mg daily Dany Disease: Continue Cortef 20 mg QAM and 10 mg QPM, Florinef 0.1 mg daily MARIUM: CPAP- Celiac disease: Gluten free diet GI Prophylaxis: Protonix 40 mg daily DVT Prophylaxis: Heparin SQ BID Code Status: LEVEL I, FULL Total Time Spent: Greater than 30 minutes This includes examination of the patient, discharge planning, medication reconciliation, and communication with other providers. Discharge Instructions Please refer to the electronic Patient Visit Report (Discharge Instructions) for additional information.
--- NOTE | 2016-12-31 10:40 | EXERCISE STRESS ECHO ---
*NOTICE TO RECEIVING [employer] This information is strictly Confidential and protected under [place] law. [place] law prohibits you from making any further disclosure of this information unless further disclosure is expressly permitted by the written consent of the person to whom it pertains or is authorized by law. A general authorization for the release of medical or other information is not sufficient for this purpose. Hospital accepts no responsibility if the information is made available to any other person, INCLUDING THE PATIENT. Interpretation Summary * Name: JEREMY GODDARD Study Date: 12/31/2016 08:32 AM BP: 143/82 mmHg * Patient Location: C.2T\S\S230\S\1 HR: 51 * : 1950 (M/d/yyyy) Gender: Male Height: 73 in * Age: 66 yrs Ethnicity: CA Weight: 195 lb * Ordering Physician: Doroteo Wiley * Referring Physician: Self, Referred * Performed By: Ofelia Chan RDCS * * Reason For Study: CHEST PAIN * BSA: 2.1 m2 * -- Conclusions -- * 1. Normal stress echocardiogram at 10.1 METS and a peak heart rate of 88% maximum predicted. * 2. No exercised induced chest pain. * 3. No EKG changes. * 4. Baseline echocardiogram notes normal left ventricular systolic function and evidence of diastolic dysfunction. Procedure Details * ECHOEX, CPT #39215 * A contrast injection of Definity was performed to improve assessment of LV function. * Contrast was injected into an intravenous site in the right arm. * One vial of Definity ultrasound contrast was diluted in normal saline to a total volume of 10 ml. A total of '4' ml of solution was administered during imaging. * Lot # [id number] of Definity utilized for procedure. * Expiration date MAR 12. * The attending nurse who injected the contrast agent was SURYA FOLEY RN. Left Ventricle * The left ventricle is normal in size. * There is normal left ventricular wall thickness. * Ejection Fraction = 55-60%. * Left ventricular systolic function is normal. * Resting wall motion: Normal. Stress wall motion: Appropriate increase in Left ventricular systolic function and decrease in cavity size. No stress induced segmental wall motion abnormalities. Right Ventricle * The right ventricle is grossly normal size. * The right ventricular systolic function is normal as assessed by tricuspid annular plane systolic excursion (TAPSE) (normal >1.5 cm). Atria * Borderline left atrial enlargement. * Right atrium not well visualized. * There is no evidence of atrial septal defect, but resolution does not allow assessment for a patent foramen ovale. Mitral Valve * The mitral valve anatomy is normal. * There is no mitral valve stenosis. * Significant mitral regurgitation is absent. Tricuspid Valve * The tricuspid valve anatomy is normal. * There is no tricuspid stenosis. * Significant tricuspid regurgitation is absent. Aortic Valve * The aortic valve is tricuspid. The leaflet thickness if normal. There is no aortic stenosis, and no significant insufficiency. * The aortic valve opens well. * Aortic valve sclerosis mild, without significant aortic valvular stenosis. * There is no significant aortic regurgitation. Pulmonic Valve * The pulmonary valve is not well seen, but the Doppler examination is normal without significant regurgitation or stenosis. Great Vessels * Borderline aortic root dilatation. * The pulmonary is not well visualized. Pericardium * There is no pericardial effusion. Stress Parameters * The baseline ECG displays normal sinus rhythm. * Stress ECG: No ST changes. No arrhythmias. * The stress portion of this study was personally supervised by the undersigned interpreting physician. * Rest heart rate was '51' BPM. * Rest blood pressure was '143/82' * Maximum heart rate achieved was 136 bpm. * Maximum heart rate was 88 % of maximum age-predicted heart rate. * Maximum blood pressure was '236/62' * Total exercise time was '8:32' * Maximum exercise MET level achieved was '10.10' METS * Maximum treadmill speed was '3.40' miles per hour. * Maximum treadmill elevation was '14.00'% grade. * Exercise was terminated due to 'ACHIEVING TARGET HR' Left Ventricular Diastolic Function * Grade I diastolic dysfunction, (abnormal relaxation pattern). MMode 2D Measurements and Calculations IVSd 0.87 cm IVSs 1.5 cm LVIDd 5.0 cm LVIDs 3.6 cm LVPWd 0.65 cm LVPWs 1.4 cm IVS/LVPW 1.3 FS 28.8 % EDV(Teich) 120.0 ml ESV(Teich) 53.7 ml EF(Teich) 55.2 % EDV(cubed) 127.3 ml ESV(cubed) 45.9 ml EF(cubed) 63.9 % % IVS thick 76.5 % % LVPW thick 119.3 % LV mass(C)d 128.2 grams LV mass(C)dI 60.2 grams/m\S\2 LV mass(C)s 194.7 grams LV mass(C)sI 91.5 grams/m\S\2 SV(Teich) 66.2 ml SI(Teich) 31.1 ml/m\S\2 SV(cubed) 81.4 ml SI(cubed) 38.3 ml/m\S\2 Ao root diam 3.7 cm Ao root area 10.9 cm\S\2 LA dimension 3.4 cm LA/Ao 0.92 Doppler Measurements and Calculations MV E max refugio 56.3 cm/sec MV A max refugio 71.8 cm/sec MV E/A 0.78 MV dec time 0.33 sec Ao V2 max 120.2 cm/sec Ao max PG 5.8 mmHg Ao max PG (full) 2.3 mmHg LV V1 max PG 3.5 mmHg LV V1 max 93.6 cm/sec
[2016-12-31 10:43] VITALS: BP 112/73; PULSE 60; TEMP 36.5; O2SAT 94
== END 2016-12-31 11:10 | disposition home or self-care (01) ==
LOC: C.EDB 09:53 → C.2T 12:49 → ENRESERV 13:20
PROVIDERS: ADMIT Internal Medicine; ATTEND Internal Medicine
DX: R07.89 Other chest pain (principal); R10.12 Left upper quadrant pain; E27.1 Primary adrenocortical insufficiency; I25.10 Atherosclerotic heart disease of native coronary artery without angina pectoris; I10 Essential (primary) hypertension; E78.5 Hyperlipidemia, unspecified; G47.33 Obstructive sleep apnea (adult) (pediatric); K21.9 Gastro-esophageal reflux disease without esophagitis; K90.0 Celiac disease; F41.9 Anxiety disorder, unspecified; Z87.891 Personal history of nicotine dependence; Z95.5 Presence of coronary angioplasty implant and graft; Z79.899 Other long term (current) drug therapy

== ENCOUNTER → 2017-01-30 | Outpatient (CLI) | payer OTHER, BC ==
[~2017-01-30] MED LIST changes: +CITA20TA9 PO; -CLX20 PO; -FLR1 PO; +FLUD0.1T10 PO; +HYDR20TA PO; -MULTTAB58 PO
== END | disposition home or self-care (01) ==
LOC: C.MAMM 08:02
PROVIDERS: ATTEND Family Medicine
DX: M85.851 Other specified disorders of bone density and structure, right thigh (principal)